=== PATIENT | male | born 1995 | race Caucasian/White ===

== ENCOUNTER 2017-02-16 20:54 | Emergency (ER) | payer BC, OTHER ==
[~2017-02-16] VITALS: Ht 172.7 cm; Wt 66.0 kg
[2017-02-16 20:57] VITALS: Ht 172.7 cm; Wt 66.0 kg
[2017-02-16 21:27] LABS: ADD SCAN DIFF NO
[2017-02-16] MEDS ORDERED: LORAZEPAM 2 MG INJ IM ONE (21:30)
[2017-02-16 21:31] LABS: BASOPHILS % 0.1 % (0.0-2.0); EOSINOPHILS # 0.1 10^3/ul (0.0-0.5); EOSINOPHILS % 0.5 % (0.0-7.0); HEMATOCRIT 47.5 % (42.0-52.0); HEMOGLOBIN 15.3 g/dl (14.0-18.0); LYMPHOCYTES # 1.9 10^3/ul (0.8-2.9); LYMPHOCYTES % 13.9 % (15.0-51.0); MEAN CORPUSCULAR HEMOGLOBIN 28.8 pg (29.0-33.0); MEAN CORPUSCULAR HGB CONC 32.2 g/dl (32.0-37.0); MEAN CORPUSCULAR VOLUME 89.5 fl (82.0-101.0); MEAN PLATELET VOLUME 10.6 fl (7.4-10.4); MONOCYTES % 7.3 % (0.0-11.0); NEUTROPHIL # 10.5 10^3/ul (1.6-7.5); NEUTROPHILS % 77.9 % (39.0-77.0); PLATELET COUNT 220 10^3/UL (140-415); RED BLOOD COUNT 5.31 10^6/ul (4.70-6.10); RED CELL DISTRIBUTION WIDTH 13.4 % (11.5-14.5); WHITE BLOOD COUNT 13.5 10^3/ul (4.8-10.8)
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
[2017-02-16 21:48] LABS: CHLORIDE 101 mmol/L (97-110)
[2017-02-16 21:49] LABS: ALBUMIN 4.1 g/dl (3.3-4.9); SODIUM 140 mmol/L (135-144)
[2017-02-16 21:51] LABS: BILIRUBIN,INDIRECT 0.3 mg/dl (0-1.1); BILIRUBIN,TOTAL 0.3 mg/dl (0.2-1.3); CARBON DIOXIDE 29 mmol/L (21-31); CREATININE 0.95 mg/dl (0.61-1.24)
[2017-02-16 21:52] LABS: ALANINE AMINOTRANSFERASE 28 IU/L (13-69); ALBUMIN/GLOBULIN RATIO 1.36; ALKALINE PHOSPHATASE 76 IU/L (42-121); ASPARTATE AMINO TRANSFERASE 23 IU/L (15-46); BLOOD UREA NITROGEN 23 mg/dl (7-20); CALCIUM 9.2 mg/dl (8.4-10.2); GLUCOSE 149 mg/dl (70-220); TOTAL PROTEIN 7.1 g/dl (6.1-8.1)
[2017-02-16 21:53] LABS: ANION GAP 14 (8-16)
[2017-02-16 21:54] LABS: ACETAMINOPHEN < 10.0 ug/ml (10.0-30.0); ETHANOL < 10.0 mg/dl; POTASSIUM 3.8 mmol/L (3.5-5.1); SALICYLATE < 1.0 mg/dl (5.0-30.0)
[2017-02-17 03:15] LABS: BARBITURATES Negative (NEGATIVE); BENZODIAZEPINES Negative (NEGATIVE); CANNABINOIDS Positive (NEGATIVE)
[2017-02-17 03:25] LABS: COCAINE Negative (NEGATIVE); OPIATES Negative (NEGATIVE)
[2017-02-17 04:07] LABS: ADD UMIC YES; URINE BILIRUBIN (Dip) NEGATIVE (NEGATIVE); URINE BLOOD (Dip) TRACE (NEGATIVE); URINE COLOR LT. YELLOW (YELLOW); URINE GLUCOSE (Dip) NEGATIVE (NEGATIVE); URINE KETONES (Dip) NEGATIVE (NEGATIVE); URINE LEUKOCYTE ESTERASE (Dip) NEGATIVE (NEGATIVE); URINE NITRITE (Dip) NEGATIVE (NEGATIVE); URINE TOTAL PROTEIN (Dip) NEGATIVE (NEGATIVE); URINE UROBILINOGEN (Dip) 0.2 E.U./dL (0.1-1.0)
[2017-02-17 04:16] LABS: URINE RBCS 0-2 /HPF (0)
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
[2017-02-17] MEDS ORDERED: HALOPERIDOL 5 MG TAB PO ONE (09:00)
[2017-02-17] MEDS ORDERED: LORAZEPAM 2 MG INJ IM ONE (12:00)
[2017-02-17] MEDS ORDERED: HALOPERIDOL 5 MG INJ IM ONE (12:00)
[2017-02-17 20:45] VITALS: BP 125/75; PULSE 89; RESP 12; TEMP 98.5
== END 2017-02-17 20:48 ==
LOC: E/R 20:54
DX: R46.1 Bizarre personal appearance (principal)
CPT/HCPCS: 36415; 80053; 80306; 80307; 81001; 81003; 85025; 96372; 99285; J1630; J2060